=== PATIENT | female | born 1970 | race Caucasian/White ===

== ENCOUNTER → 2024-08-15 13:54 | Outpatient (BNVA) | payer SELFPAY | PROVIDERS: PCP Nurse Practitioner Family; Visit Provider Nurse Practitioner Family | DX: R22.40 Localized swelling, mass and lump, unspecified lower limb (principal) | CPT/HCPCS: 73562 ==

== ENCOUNTER → 2024-09-05 15:10 | Outpatient (BNVA) | payer SELFPAY | PROVIDERS: PCP Nurse Practitioner Family; Visit Provider Nurse Practitioner Family | DX: M79.642 Pain in left hand (principal) | CPT/HCPCS: 73130 ==

== ENCOUNTER 2024-09-18 08:19 | Outpatient (CLI) | payer SELFPAY ==
--- NOTE | 2024-09-18 09:45 | US_ITS ---
WS: [id number] ULTRASOUND SOFT TISSUES medial LEFT knee. HISTORY: R22.40 - Localized swelling, mass and lump, unspecified l... COMPARISON: Radiograph 08/15/2024 TECHNIQUE: 2-D and color Doppler imaging is submitted. No definite mass identified. There is no change in echogenicity of the soft tissue structures along the medial LEFT knee. There does appear to be increased lipomatous deposition of soft tissues but not well encapsulated to suggest a lipoma. US/US soft tissue/extremity [id number] IMPRESSION: Prominent fatty tissue along the medial LEFT knee although no well encapsulated mass. Consider lipedema. On recent radiograph from 08/15/2024 there was also pr ominent fatty tissue along the medial knee.
== END 2024-09-18 08:20 | disposition home or self-care (01) ==
PROVIDERS: PCP Nurse Practitioner Family; Visit Provider Nurse Practitioner Family
DX: R22.40 Localized swelling, mass and lump, unspecified lower limb (principal)
CPT/HCPCS: 76882

== ENCOUNTER → 2024-10-04 10:40 | Outpatient (BNVA) | payer SELFPAY | PROVIDERS: PCP Nurse Practitioner Family; Visit Provider Nurse Practitioner | DX: M25.562 Pain in left knee (principal); D17.24 Benign lipomatous neoplasm of skin and subcutaneous tissue of left leg | CPT/HCPCS: 73560; 73565 ==

== ENCOUNTER → 2024-12-04 12:16 | Outpatient (BNVA) | payer SELFPAY | PROVIDERS: PCP Nurse Practitioner Family; Visit Provider Nurse Practitioner | DX: N39.0 Urinary tract infection, site not specified (principal) | CPT/HCPCS: 81000; 87086 ==